=== PATIENT | female | born 1945 | race Caucasian/White ===

== ENCOUNTER 2020-09-21 11:28 | Outpatient (REF) | payer OTHER, SELFPAY ==
--- NOTE | ~2020-09-21 | XR_ITS ---
EXAMINATION: XR KNEE, LEFT CLINICAL INFORMATION: M25.562 - Pain in left knee COMPARISON: None TECHNIQUE: Four views of the left knee. FINDINGS: There are degenerative changes with marginal osteophytes from the medial lateral tibial plateau. There is no significant joint narrowing and no erosive change or visible chondrocalcinosis. Moderate suprapatellar effusion is present. Hoffa's fat pad appears normal. There is mild spurring at the quadriceps insertion patella. No fracture, dislocation, destructive process. XR/XR knee LT 4V IMPRESSION: Degenerative changes with moderate patellar effusion.
== END 2020-09-21 11:29 | disposition home or self-care (01) ==
LOC: HO.HMGCX 11:28
PROVIDERS: PCP Internal Medicine; Visit Provider Hospitalist
DX: M25.562 Pain in left knee (principal)
CPT/HCPCS: 73564

== ENCOUNTER 2023-06-05 08:31 | Outpatient (AMB) | payer OTHER, SELFPAY ==
[2023-06-05 08:45] VITALS: BP 126/78; PULSE 74; O2SAT 96; BMI 29.3
--- NOTE | 2023-06-05 08:45 | AM.OFFWIN_ITS ---
Intake Vital Signs 3 06/05/23 08:45 Height 5 ft 4 in Weight 170 lb 8 oz BMI 29.3 BP 126/78 Blood Pressure Location Lt brachial Position Sitting Pulse 74 Pulse Source Pulse Oximeter Pulse Oximetry (%) 96 Oxygen Delivery Method Room Air Intake Visit Reasons: EP LT foot Patient Tobacco Use Status: Never used Tobacco Allergies No Known Allergies Allergy (Verified 06/05/23 08:48) Medication List - Last Reconciled 06/05/23 by Delano Rodrigues MD apixaban (Eliquis) 5 mg PO BID atenolol 50 mg PO DAILY levothyroxine 175 mcg PO DAILY lisinopril 5 mg PO DAILY oxybutynin chloride ER 5 mg PO DAILY sertraline 100 mg PO DAILY Do you need a note to return to daycare/school/sports/work: No HPI EP LT foot 2 HPI0 Details Patient is a 77-year-old female came in today to be evaluated for pain left foot, patient says that she was gardening the other day and she noticed her foot was hurting around her to and it seemed red and swollen Next day it was feeling better swelling was down Patient did gardening again and noticed the swelling but no redness She said that she has booked appointment with a foot doctor but it is not until August On examination patient have callus a wart on her left toe plantar aspect which is causing pain when she walks There is no swelling at this time She has an appointment with primary care coming up this week, she will discuss vascular evaluation in her left leg, that might be the reason of swelling when she is on her feet all day. There is no signs of infection. On review system there is no fever no chills no headache no nausea no vomiting PFSH Social History Patient Tobacco Use Status: Never used Tobacco Review of Systems Const All systems reviewed & are unremarkable except as noted in HPI and below Physical Exam Vital Signs: Last Vital Signs Pulse 74 06/05/23 08:45 BP 126/78 06/05/23 08:45 Pulse Ox 96 06/05/23 08:45 Oxygen Delivery Method Room Air 06/05/23 08:45 BMI result Body Mass Index 29.3 Const General: no acute distress Orientation/consciousness: patient oriented x3 Eyes General: appearance normal, both eyes and all related structures Resp Effort & Inspection: normal respiratory effort and able to speak in complete sentences Auscultation: clear to auscultation bilaterally Cardio Other: S1 S2 Neuro General: patient oriented x3 Extrem Ankle/foot/toe images: 2 1. Callus and wart, no signs of infection, no swelling, dorsalis pedal pulse 2+, sensory intact, patient is able to move all toes without any discomfort Psych Mental Status: mental status grossly normal Assessment & Plan Assessment & Plan (1) Plantar wart of left foot: Code(s): B07.0 - Plantar wart Plan Patient is a 77-year-old female came in today to be evaluated for pain left foot, patient says that she was gardening the other day and she noticed her foot was hurting around her to and it seemed red and swollen Next day it was feeling better swelling was down Patient did gardening again and noticed the swelling but no redness She said that she has booked appointment with a foot doctor but it is not until August On examination patient have callus a wart on her left toe plantar aspect which is causing pain when she walks There is no swelling at this time She has an appointment with primary care coming up this week, she will discuss vascular evaluation in her left leg, that might be the reason of swelling when she is on her feet all day. There is no signs of infection. I would recommend to gently take off skin around the romano after baths, while she wait to see the traditional chinese herbalist On review system there is no fever no chills no headache no nausea no vomiting Coding Level of Care Code Est Pt Level 3 (11169) Diagnoses Plantar wart of left foot B07.0
== END 2023-06-05 10:05 | disposition home or self-care (01) ==
PROVIDERS: PCP Internal Medicine; Visit Provider Internal Medicine
DX: B07.0 Plantar wart (principal)
CPT/HCPCS: 99213

== ENCOUNTER 2023-07-17 08:08 | Outpatient (AMB) | payer OTHER, SELFPAY ==
[2023-07-17 08:25] VITALS: BP 120/76; PULSE 68; TEMP 36.6; O2SAT 94; BMI 28.6
--- NOTE | 2023-07-17 08:25 | AM.OFFWIN_ITS ---
Intake Vital Signs 07/17/23 08:25 Height 5 ft 4 in Weight 166 lb 8 oz BMI 28.6 BP 120/76 Blood Pressure Location Lt brachial Position Sitting Pulse 68 Pulse Source Pulse Oximeter Temp 97.9 F Temp Source Oral Pulse Oximetry (%) 94 Oxygen Delivery Method Room Air Intake Visit Reasons: EP swollen/pain big toe lft foot Intake Note: Pt is here today for big Lt toe swelling, pt mentioned she has an appt with podiatry August 26 but states its painful and hard to walk. Patient Tobacco Use Status: Never used Tobacco Allergies No Known Allergies Allergy (Verified 06/05/23 08:48) HPI HPI Comments History of Present Illness Details This is a 78-year-old female with a past medical history of atrial fibrillation currently maintained on Eliquis, depression, hypothyroidism and hypertension presenting for evaluation of pain, redness and swelling in her left great toe. Patient was evaluated for discomfort in her left toe at the beginning of June and diagnosed with a plantar wart that she has been using a pumice stone on. Patient states over the past 2 days her left great toe has become significantly more painful, red and swollen. Patient has taken ibuprofen without relief for discomfort. Patient denies any injury or trauma preceding the onset of her symptoms. [facility] Social History Patient Tobacco Use Status: Never used Tobacco Review of Systems Const All systems reviewed & are unremarkable except as noted in HPI and below Denies chills and Denies fever(s) Eyes Reports no additional complaints ENT Reports no additional complaints Card Reports no additional complaints Resp Reports no additional complaints GI Reports no additional complaints Reports no additional complaints Musc Details: pain LGT Reports limited range of motion Skin/Breast Reports change in pigmentation, Reports erythema and Denies sores Neuro Reports no additional complaints Endo Reports no additional complaints Physical Exam Vital Signs: Last Vital Signs Temp 97.9 F 07/17/23 08:25 Pulse 68 07/17/23 08:25 BP 120/76 07/17/23 08:25 Pulse Ox 94 07/17/23 08:25 Oxygen Delivery Method Room Air 07/17/23 08:25 BMI result Body Mass Index 28.6 Const General: cooperative, healthy appearing, comfortable, no acute distress, well developed, alert and Physically active Nutritional Appearance: average body habitus Orientation/consciousness: patient oriented x3 Limitations: no limitations Skin Other: There is macular erythema overlying the proximal phalanx of the LGT both dorsal and plantar surfaces with subjective edema that is warm and tender to touch; plantar wart present plantar lateral surface of the LGT, no fluctuance, no exudates. Erythema does not overlie the 1st MTP. Neuro General: patient oriented x3 Extrem Other: pain to direct examination of the dorsal surface of the LGT; patient favors left foot when ambulating. Assessment & Plan Assessment & Plan (1) Cellulitis of great toe, left: Comment: No clinical evidence of gout and no evidence of retained foreign body. Code(s): L03.032 - Cellulitis of left toe Plan: Doxycycline b.i.d. x7 days. Patient will follow up Podiatry as scheduled on August 26. Medications: New doxycycline hyclate 100 mg PO BID 14 caps 0RF Coding Level of Care Code Est Pt Level 3 (40344) Diagnoses Cellulitis of great toe, left L03.032 Time Spent (min) 20
== END 2023-07-17 09:04 | disposition home or self-care (01) ==
PROVIDERS: PCP Internal Medicine; Visit Provider Physician Assistant
DX: L03.032 Cellulitis of left toe (principal)
CPT/HCPCS: 99213

== ENCOUNTER 2023-11-27 08:03 | Outpatient (AMB) | payer OTHER, SELFPAY ==
[2023-11-27 08:05] VITALS: BP 140/90; PULSE 86; O2SAT 96
--- NOTE | 2023-11-27 08:05 | AM.OFFWIN_ITS ---
Intake Vital Signs 3 11/27/23 08:05 Weight 168 lb BP 140/90 H Blood Pressure Location Lt brachial Position Sitting Pulse 86 Pulse Source Pulse Oximeter Pulse Oximetry (%) 96 Oxygen Delivery Method Room Air Intake Visit Reasons: EP Blisters on lt leg Intake Note: Patient here for blisters on left leg that started last week. Patient Tobacco Use Status: Never used Tobacco Allergies No Known Allergies Allergy (Verified 11/27/23 08:09) Do you need a note to return to daycare/school/sports/work: No HPI HPI Comments 2 History of Present Illness0 Details 78 y/o female patient who presents to [facility] walk in clinic with c/o itchy red skin blisters on her BLEs for 1 week now. She does report taking a new medication Atorvastatin 10 mg that was started 3 weeks ago by PCP. reports the blisters are very itchy and filled with clear fluid. [facility] Social History Patient Tobacco Use Status: Never used Tobacco Review of Systems Const All systems reviewed & are unremarkable except as noted in HPI and below Physical Exam Const General: cooperative and no acute distress Nutritional Appearance: obese Orientation/consciousness: patient oriented x3 Skin Other: Large red raised skin blisters filled with fluid Full body images: 2 1. Large red raised skin blisters filled with fluid 2. Large red raised skin blisters filled with fluid Neuro General: patient oriented x3, gait normal and moves all extremities Extrem Right lower extremity: full ROM and lower leg Details: no edema; no tenderness Left lower extremity: full ROM and lower leg Details: no edema; no tenderness Assessment & Plan Assessment & Plan (1) Bullous rash: Code(s): R21 - Rash and other nonspecific skin eruption Plan: Advised to Stop Atorvastatin for now and F/U with PCP. Suspecting an adverse reaction from medication. Atorvastatin is known to cause Bullous Rash. DDx's: Bullous Pemphigoid rash vs Bullous Dermatosis. Coding Level of Care Code Est Pt Level 3 (33170) Diagnoses Bullous rash R21 Time Spent (min) 15
== END 2023-11-27 08:48 | disposition home or self-care (01) ==
PROVIDERS: PCP Internal Medicine; Visit Provider Nurse Practitioner Family
DX: R21 Rash and other nonspecific skin eruption (principal)

== ENCOUNTER → 2023-11-27 08:03 | Outpatient (BNVA) | payer OTHER, SELFPAY | PROVIDERS: PCP Internal Medicine; Visit Provider Nurse Practitioner Family ==

== ENCOUNTER 2024-06-13 08:02 | Outpatient (AMB) | payer OTHER, SELFPAY ==
--- OUTSIDE RECORDS SUMMARY | 2024-06-13 08:07 | XMS_ITS ---
Author Organization [facility] Address [address] [place] [address] Care Team Providers Care [employer] Magistrate Name Role Phone Staci Galarza MD Primary Care Provider Unav ailable Karoline Rodriguez Unavailable [phone] REASON FOR VISIT BUY Wart Stick Encounters Encounter Location Date Provider Diagnosis [facility] [address] [place] [address] 11/14/2023 Karoline Rodriguez Plan Of Treatment No Information Progress Notes * Helen GALARZA ADOB:[birth year] (78 yo F)Acc No.[id number]:11/14/2023 Patient:?Helen Galarza :1945???Age:78 Y???Sex:Female Address:[address] [place] [address], [address] * true * Date:? Generated for Printi maite/Radhames/eTransmitting on:?06/13/2024 08:07 AM EDT
--- OUTSIDE RECORDS SUMMARY | 2024-06-13 08:07 | XMS_ITS ---
Author Organization [facility] Address [address] [place] [address] Care Team Providers Care Putty Mixer And Applier Name Role Phone Staci Galarza MD Primary Care Provider Unav ailable Karoline Rodriguez Unavailable [phone] Allergies No Known Allergies REASON FOR VISIT Pcp-08/2023, Erost(s) Medications Medication SIG (Take, Route, Frequency, Duration) Notes Start Date End Date Status Sertraline HCl 100 MG 1 tablet Orally On ce a day Active Levothyroxine Sodium 175 MCG 1 tablet in the morning on an empty stomach Orally Once a day Active oxyBUTYnin Chloride 5 MG 1 tablet Orally Once a day Active Lisinopril 10 MG 1 tablet Orally Once a day Active Atenolol 50 MG 1 tablet Orally Once a day Active Multiple Vitamin Act jaye Calcium + D Active Eliquis 5 MG as directed Orally Active Social History Tobacco Use: Social History Observation Description Date Details (start date - stop date) Never Smoker NA - NA Tobacco Use/Smoking Question Answer Notes Are you a: nonsmoker Additional Findings: Tobacco Non-User Current no n-smoker Tobacco use other than smoking: Question Answer Notes Are you an other tobacco user? No Problems Problem Type SNOMED Code ICD Code Onset Dates Problem Status W/U Status Risk Notes Problem Plantar wart ([id number]) Plantar wart (B07.0) Active confirmed Vital Signs Height 5 ft 4 in in 10/24/2023 Weight 165 lbs 10/24/2023 BMI 28.32 kg/m2 10/24/2023 Encounters Encounter Location Date Provider Diagnosis [facility] [address] [place] [address] 10/24/2023 Karoline Rodriguez Left foot pain M79.672 and Plantar wart B07.0 Assessments Encounter Date Diagnosis (ICD Code) Assessment Notes Treatment Notes Treatment Clinical Notes Section Notes 10/24/2023 Left foot pain (ICD-10 - M79.672) 10/24/2023 Plantar wart (ICD-10 - B07.0) Plan Of Treatment Next Appt Details Follow Up: 4 Weeks, Reason: Procedure Notes * Category Sub-Category Detail Notes Wart Treatment Procedure Verrucae were de brided to pin-point bleeding margins with sterile 15 surgical blade, silver nitrate chemocautery applied, recomm. immune-boosting meds such as zinc, recomm. follow up with topical chemosurgical agents , treated with CANTHERONE Plus Salicylic acid. The patient was informed of the possible skin reactions to Canthardin, including, but not limited to, pain, difficulty standing/walking for up to a week or more, redness, swelling, blistering, infection. Recommendations were made for the patient to take Tylenol and/or Anti-inflammatories such as Motrin for pain if their PMH allows, apply ice, or soak in cool water twice daily for 20 minutes for blistering, and call the office if reaction is severe Progress Notes * Helen GALARZA ADOB:[birth year] (78 yo F)Acc No.[id number]:10/24/2023 Progress Notes Patient:?Geovanni Helen Tariq Provider:?Karoline Rodriguez DPM :1945???Age:78 Y???Sex:Female D ate:10/24/2023 Address:[address] [place], [place] [id number] Pcp:Staci Galarza MD Subjective: * Chief Complaints: * ???Pcp-08/2023Wart(s) * HPI: ???Skin problems:?Pt States PCP Visit: ?DATE?09/04/2023 * ROS:?General/Constitutional:?Nausea?denies.?Vomiting?denies.?Hunger Thirst?denies.?Loss appetite?denies.?Chills?denies.?Fatigue?denies.?Fever?denies.?Night Sweats?denies.?Unexplained weight loss?denies.?Unexplained weight gain?denies.?HEENTM:?Dentures?denies.?Dizziness?denies.?Glasses/contacts?admits.?Retinopathy?de nies.?Blurred/double vision?denies.?TMJ?denies.?Discharge/drainage?denies.?Implants?denies.?Sore throat?denies.?Dental implants?denies.?Hard of hearing ?denies.?Difficulty chewing/swallowing/speaking?denies.?Nose bleeds?denies.?Sore mouth?denies.?Respiratory:?On Oxygen?denies.?Pneumonia/pleurisy?denies.?Bronchitis?denies.?Emphysema?denies.?C oughing?denies.?Cough blood?denies.?Shortness of breath?admits.?Wheezing?denies.?Cardiovascular:?Pacemaker?denies.?MVP?denies.?WPW?denies.?CHF?denies.?Heart attack?denies.?Septal defect?denies.?Rapid beat?denies.?Chest pain ?denies.?Atrial Fib.?admits.?Murmur/Palpitations?denies.?Gastrointestinal:?Hemorrhoids?denies.?Stomach/Abdominal pain?denies.?Dark blood stool?denies.?Irritable bowel ?denies.?Constipation?denies.?Diarrhea?denies.?Hematology:?Swelling?denies.?Clots?denies.?Varicose Veins?denies.?Bruising?denies.?Bleeding problem?denies.?Genitourinary:?Blood urine?denies.?Frequent/Painfu/urination/bladder control?denies.?Kidney stones?denies.?Infection (UTI)?denies.?Nephropathy?denies.?sex trans dis (STD)?denies.?Prostate?denies.?Musculoskeletal:?Hammertoes?denies.?Bunions?admits.?Back Pain?admits.?Muscle Cramps/ Resting?denies.?Muscle cramps / walking?denies.?Generalized aches and pains?denies.?Weakness?denies.?Integ.:?Nath?denies.?Scars?denies.?Corns/calluses?admits.?Ingrown nails?denies.?Painful nails?denies.?Open Sores?denies.?Rashes?denies.?Neurologic:?Difficulty sleeping?denies.?Brain disorder?denies.?Numbness?denies.?Balance trouble?denies.?Confusion?denies.?Fainting/blackouts?denies.?Tingling?denies.?Tr emors?denies.? * Medical History:? * Surgical History:?bilateral mastectomy 2020 * Hospitalization/Major Diagno stic Procedure:?Denies Past Hospitalization * Family History:?Mother: dece ased, foot problems, diagnosed with Unspecified essential hypertension, Other malignant neoplasm of unspecified site.?Father: .? * Social History:?Tobacco Use:?Tobacco Use/Smoking?Are you a:?nonsmoker ?Additional Findings: Tobacco Non-User?Current non-smoker ?Tobacco use other than smoking?Are you an other tobacco user??No ???Miscellaneous:?Caffeine: yes, frequency:, 1-2 cups per day. ?Children: yes, 1. ?Exercise: yes, walking. ?Marital status: . ?Occupation: Retired. * Medications:?TakingEliquis 5 MG Tablet as directed Orally Calcium + D Multiple Vitamin Lisinopril 10 MG Tablet 1 tablet Orally Once a dayoxyBUTYnin Chloride 5 MG Tablet 1 tablet Orally Once a dayLevothyroxine Sodium 175 MCG Tablet 1 tablet in the morning on an empty stomach Orally Once a daySertraline HCl 100 MG Tablet 1 tablet Orally Once a dayAtenolol 50 MG Tablet 1 tablet Orally Once a dayMedication List reviewed and reconciled with the patientTaking Eliquis 5 MG Tablet as directed Orally Taking Calcium + D Taking Multiple Vitamin Taking Lisinopril 10 MG Tablet 1 tablet Orally Once a dayTaking oxyBUTYnin Chloride 5 MG Tablet 1 tablet Orally Once a dayTaking Levothyroxine Sodium 175 MCG Tablet 1 tablet in the morning on an empty stomach Orally Once a dayTaking Sertraline HCl 100 MG Tablet 1 tablet Orally Once a dayTaking Atenolol 50 MG Tablet 1 tablet Orally Once a dayMedication List reviewed and reconciled with the patient * Allergies:?N.K.D.A.yes[Aller gies Verified] Objective: * Vitals:?Ht: 5 ft 4 in, Wt: 1 65, BMI: 28.32, Shoe size: 8.5, Ht-cm: 162.56 cm, Wt-k.84 kg. * Examination: ???Dermatologic: ?VERRUCA:?Reveals a Single , multi-loculated , mosaic-patterned, round, raised, flat-topped, petechial bleeding papule(s), with cauliflower appearance and interruption of skin lines, pain to lateral compression, and size estimated at 5 mm diameter , LEFT , 1st toe.? Assessment: * Assessment: 1.?Left foot pain - M79.672? 2.?Plantar wart - B07.0 (Primary)? Plan: * Treatment: * Procedures:?Wart Treatment:?Procedure?Verrucae were debrided to pin-point bleeding margins with sterile 15 surgical blade, silver nitrate chemocautery applied, recomm. immune-boosting meds such as zinc, recomm. follow up with topical chemosurgical agents , treated with CANTHERONE Plus Salicylic acid. The patient was informed of the possible skin reactions to Canthardin, including, but not limited to, pain, difficulty standing/walking for up to a week or more, redness, swelling, blistering, infection. Recommendations were made for the patient to take Tylenol and/or Anti- inflammatories such as Motrin for pain if their PMH allows, apply ice, or soak in cool water twice daily for 20 minutes for blistering, and call the office if reaction is severe.? * Procedure Codes:?21449 Wart Destruction, 1-14, Modifiers: XS * Follow Up:?4 Weeks * Images: * Sign off status: Completed true * Provider:?Karoline Rodriguez DPM Date:?12/2023 Generated for Ariana arora/Radhames/Kym on:?06/13/2024 08:07 AM EDT History and Physical Notes * HPI (History of Present Illness) Category Sub-Category Detail Notes Category Not es Skin problems Pt States PCP Visit: DATE: 09/04/2023 Examination Category Sub-Category Detail Notes Category Not es Dermatologic VERRUCA: Reveals a Single , multi-loculated , mosaic-patterned, round, raised, flat-topped, petechial bleeding papule(s), with cauliflower appearance and interruption of skin lines, pain to lateral compression, and size estimated at 5 mm diameter , LEFT , 1st toe
--- OUTSIDE RECORDS SUMMARY | 2024-06-13 08:07 | XMS_ITS ---
Author Organization [facility] Address [address] [place] [address] Care Team Providers Care Care Management Specialist Name Role Phone Staci Galarza MD Primary Care Provider Unav ailable Karoline Rodriguez Unavailable [phone] Allergies No Known Allergies REASON FOR VISIT Pcp-08/2023, Wilfrido(s) Medications Medication SIG (Take, Route, Frequency, Duration) Notes Start Date End Date Status Sertraline HCl 100 MG 1 tablet Orally On ce a day Active Levothyroxine Sodium 175 MCG 1 tablet in the morning on an empty stomach Orally Once a day Active Multiple Vitamin Act jaye oxyBUTYnin Chloride 5 MG 1 tablet Orally Once a day Active Lisinopril 10 MG 1 tablet Orally Once a day Active Atenolol 50 MG 1 tablet Orally Once a day Active Calcium + D Active Eliquis 5 MG as directed Orally Active Social History Tobacco Use: Social History Observation Description Date Details (start date - stop date) Never Smoker NA - NA Tobacco Use/Smoking Question Answer Notes Are you a: nonsmoker Additional Findings: Tobacco Non-User Current no n-smoker Alcohol Screen Question Answer Notes Did you have a drink containing alcohol in the p ast year? Yes Points 0 Interpretation Negative Tobacco use other than smoking: Question Answer Notes Are you an other tobacco user? No Vital Signs Height 5 ft 4 in in 11/14/2023 Weight 165 lbs 11/14/2023 BMI 28.32 kg/m2 11/14/2023 Encounters Encounter Location Date Provider Diagnosis [facility] [address] [place] [address] 11/14/2023 Karoline Rodriguez Left foot pain M79.672 and Plantar wart B07.0 Assessments Encounter Date Diagnosis (ICD Code) Assessment Notes Treatment Notes Treatment Clinical Notes Section Notes 11/14/2023 Left foot pain (ICD-10 - M79.672) 11/14/2023 Plantar wart (ICD-10 - B07.0) Plan Of Treatment Next Appt Details Follow Up: prn, Reason: Procedure Notes * Category Sub-Category Detail Notes Wart Treatment Procedure until the lesion is completely resolved, Verrucae were debrided to pin-point bleeding margins with sterile 15 surgical blade, silver nitrate chemocautery applied, recomm. immune-boosting meds such as zinc, recomm. follow up with topical chemosurgical agents , until the lesion is completely resolved Progress Notes * Helen GALARZA ADOB:[birth year] (78 yo F)Acc No.[id number]:11/14/2023 Progress Notes Patient:?Helen Galarza Provider:?Karoline Rodriguez DPM :1945???Age:78 Y???Sex:Female D ate:11/14/2023 Address:[address] [place], [place] [id number] Pcp:Staci Galarza MD Subjective: * Chief Complaints: * ???Pcp-08/2023Wart(s) * HPI: ???Skin problems:?Pt States PCP Visit: ?DATE?09/04/2023 * ROS:?General/Constitutional:?Nausea?denies, denies.?Vomiting?denies, denies.?Hunger Thirst?denies, denies.?Loss appetite?denies, denies.?Chills?denies, denies.?Fatigue?denies, denies.?Fever?denies, denies.?Night Sweats denies, denies.?Unexplained weight loss?denies, denies.?Unexplained weight gain?denies, denies.?HEENTM:?Dentures?denies, denies.?Dizziness?denies, denies.?Glasses/contacts?admits, admits.?Retinopathy?denies, denies.?Blurred/double vision?denies, denies.?TMJ?denies, denies.?Discharge/drainage?denies, denies.?Implants?denies, denies.?Sore throat?denies, denies.?Dental implants?denies, denies.?Hard of hearing ?denies, denies.?Difficulty chewing/swallowing/speaking?denies, denies.?Nose bleeds?denies, denies.?Sore mouth?denies, denies.?Respiratory:?On Oxygen?denies, denies.?Pneumonia/pleurisy?denies, denies.?Bronchitis?denies, denies.?Emphysema?denies, denies.?Coughing?denies, denies.?Cough blood?denies, denies.?Shortness of breath?admits, admits.?Wheezing?denies, denies.?Cardiovascular:?Pacemaker?denies, denies.?MVP?denies, denies.?WPW?denies, denies.?CHF?denies, denies.?Heart attack?denies, denies.?Septal defect?denies, denies.?Rapid beat?denies, denies.?Chest pain ?denies, denies.?Atrial Fib.?admits, admits.?Murmur/Palpitations?denies, denies.?Gastrointestinal:?Hemorrhoids?denies, denies.?Stomach/Abdominal pain?denies, denies.?Dark blood stool?denies, denies.?Irritable bowel ?denies, denies.?Constipation?denies, denies.?Diarrhea?denies, denies.?Hematology:?Swelling?denies, denies.?Clots?denies, denies.?Varicose Veins?denies, denies.?Bruising?denies, denies.?Bleeding problem?denies, denies.?Genitourinary:?Blood urine?denies, denies.?Frequent/Painfu/urination/bladder control?denies, denies.?Kidney stones?denies, denies.?Infection (UTI)?denies, denies.?Nephropathy?denies, denies.?sex trans dis (STD)?denies, denies.?Prostate?denies, denies.?Musculoskeletal:?Hammertoes?denies, denies.?Bunions?admits, admits.?Back Pain?admits, admits.?Muscle Cramps/ Resting?denies, denies.?Muscle cramps / walking?denies, denies.?Generalized aches and pains?denies, denies.?Weakness?denies, denies.?Integ.:?Nath?denies, denies.?Scars?denies, denies.?Corns/calluses?admits, admits.?Ingrown nails?denies, denies.?Painful nails?denies, denies.?Open Sores?denies, denies.?Rashes?denies, denies.?Neurologic:?Difficulty sleeping?denies, denies.?Brain disorder?denies, denies.?Numbness?denies, denies.?Balance trouble?denies, denies.?Confusion?denies, denies.?Fainting/blackouts?denies, denies.?Tingling?denies, denies.?Tremors?denies, denies.? * Medical History:? * Surgical History:?bilateral mastectomy 2019 * Hospitalization/Major Diagno stic Procedure:?Denies Past Hospitalization * Family History:?Mother: dece ased, foot problems, diagnosed with Unspecified essential hypertension, Other malignant neoplasm of unspecified site.?Father: .? * Social History:?Tobacco Use:?Tobacco Use/Smoking?Are you a:?nonsmoker ?Additional Findings: Tobacco Non-User?Current non-smoker ?Tobacco use other than smoking?Are you an other tobacco user??No ???Drugs/Alcohol:?Drugs?Have you used drugs other than those for medical reasons in the past 12 months??No ?Alcohol Screen?Did you have a drink containing alcohol in the past year??Yes ?Points?0 ?Interpretation?Negative ???Miscellaneous:?Caffeine: yes, frequency:, 1-2 cups per day. [...] Objective: * Vitals:?Ht: 5 ft 4 in, Wt:16 5, BMI: 28.32, Shoe size:8.5, Ht-cm: 162.56 cm, Wt- k.84 kg. * Examination: ???Dermatologic: ?VERRUCA:?Reveals a Single , multi-loculated , mosaic-patterned, round, raised, flat-topped, petechial bleeding papule(s), with cauliflower appearance and interruption of skin lines, pain to lateral compression, and size estimated at 5 mm diameter , LEFT , 1st toe.? Assessment: * Assessment: 1.?Left foot pain - M79.672? 2.?Plantar wart - B07.0 (Primary)? Plan: * Treatment: * Procedures:?Wart Treatment:?Procedure?until the lesion is completely resolved, Verrucae were debrided to pin-point bleeding margins with sterile 15 surgical blade, silver nitrate chemocautery applied, recomm. immune-boosting meds such as zinc, recomm. follow up with topical chemosurgical agents , until the lesion is completely resolved.? * Procedure Codes:?40425 Wart Destruction, 1-14, Modifiers: XS * Follow Up:?prn * Images: * Sign off status: Completed true * Provider:?Karoline Rodriguez DPM Date:?03/2023 Generated for Ariana arora/Radhames/Kym on:?06/13/2024 08:07 AM [...]
[2024-06-13 08:08] VITALS: BP 126/80; PULSE 86; O2SAT 98
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
--- OUTSIDE RECORDS SUMMARY | 2024-06-13 08:08 | XMS_ITS | Encounter Summary ---
Author Organization [facility] Address [address] [place] [address] Care Team Providers Care Family Program Specialist Name Role Phone Staci Galarza MD Primary Care Provider [phone] Reason for Visit * Reason Comments 24 Hour Holter Monitor * Cardiac Stress Testing (Routine) - Authorized Specialty Diagnoses / Procedures Referred By Contac t Referred To Contact Cardiology Diagnoses Permanent atrial fibrillation (CMS/HCC V24, CMS/HCC V28) Procedures Cardiac holter monitor (<= 48 hours) OH ECG EXTERNAL UP TO 48 HOURS RECORDING OH ECG EXTERNAL < 48 HOURS CONTINUOUS RECORDING/STORAGE R&I BY A PHYS/QHP OH EXTERNAL ECG UP TO 48 HRS INCL RECORDING SCANNING ANLYS W REPORT Eddie Minor MD [address] [place] [address] Phone: tel: fax: [facility] Referral ID Status Reason Start Date Expiration Date V isits Requested Visits Authorized [id number] Authorized 06/05/2024 06/05/2025 1 1 Encounter Details Date Type Department Care Team (Latest Contact Info) Description 2024 9:30 AM EDT Ancillary Procedure [facility] - [address] [place] [phone] Permanent atrial fibrillation (CMS/HCC V24, CMS/HCC V28) Social History Tobacco Use Types Packs/Day Years Used Date Smoking Tobacco: Never Smokeless Tobacco: Never Alcohol Use Standard Drinks/Week Comments Yes 0 (1 standard drink = 0.6 oz pur e alcohol) Comments Unknown Sex and Gender Information Value Date Recorded Sex Assigned at Not on file Legal Sex Female 2:38 AM EST Gender Identity Not on file Sexual Orientation Not on file documented as of this encounter Plan of Treatment Upcoming Encounters Date Type Department Care Team (Late st Contact Info) Description 09/01/2024 1:00 PM EDT Ancillary Procedure [facility] - [address] [place] [address] 11/18/2024 11:15 AM EDT Office Visit Adult Medicine [facility] [address] [place] [address] Staci Galarza MD [address] [place] [address] 05/12/2025 9:30 AM EDT Office Visit General Surgery [facility] [address] [facility] [address] [place] [address] Marybeth Rice MD [address] [facility] [address] [place] [address] Pending Results Name Type Priority Associated Diagnoses Date /Time Cardiac holter monitor (<= 48 hours) Cardiac Services Routine Permanent atrial fibrillation (CMS/HCC V24, CMS/HCC V28) 2024 9:22 AM EDT documented as of this encounter Visit Diagnoses Diagnosis Permanent atrial fibrillation (CMS/HCC V24, CMS/HCC V28) Atrial fibrillation documented in this encounter Additional Health Concerns Assessment Noted Time PHQ-9 Depression Total Score: 0 05/20/19 25 10:38 AM EDT A fall risk assessment has been complete d for the patient 05/17/2024 12:08 PM EDT documented as of this encounter Care Teams Family Program Specialist Relationship Specialty Start Date End Date Staci Galarza MD [address] [place] [id number] PCP - General 12/31/03 documented as of this encounter
--- OUTSIDE RECORDS SUMMARY | 2024-06-13 08:08 | XMS_ITS | Patient Health Record ---
Author Organization [facility] Address [address] [facility] [place] [address] Care Team Providers Care Rubber Heel And Sole Press Tender Name Role Phone Michell DUMONT, Polico Maikel Primary Care Provider Unav ailable Karoline Rodriguez Unavailable [phone] Christopher Smith Unavailable [phone] Allergies No Known Allergies Reason For Referral No Information Medications Medication SIG (Take, Route, Frequency, Duration) Notes Start Date End Date Status Sertraline HCl 100 MG 1 tablet Orally On ce a day Active Levothyroxine Sodium 175 MCG 1 tablet in the morning on an empty stomach Orally Once a day Active Atenolol 50 MG 1 tablet Orally Once a day Active Multiple Vitamin Act jaye Calcium + D Active oxyBUTYnin Chloride 5 MG 1 tablet Orally Once a day Active Lisinopril 10 MG 1 tablet Orally Once a day Active Eliquis 5 MG as directed Orally [...] W/U Status Risk Notes Problem Plantar wart (92664496) Plantar wart (B07.0) Active confirmed Problem [id number] Hallux valgus (acquired), right foot (M20.11) Active confirmed Problem [id number] Hallux valgus of left foot (M20.12) Active confirmed Problem 271838585 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) Active confirmed Vital Signs Height 5 ft 4 in in 11/14/2023 Weight 165 lbs 11/14/2023 BMI 28.32 kg/m2 11/14/2023 Encounters Encounter Location Date Provider Diagnosis [address] [address] 09/13/2023 Karoline Rodriguez Disorder of the skin and subcutaneous tissue, unspecified L98.9 ; Accessory bone of foot Q74.2 ; Left foot pain M79.672 ; Hallux valgus of left foot M20.12 and Hallux valgus (acquired), right foot M20.[address] [address] 10/24/2023 Karoline Perica Left foot pain M79.672 and Plantar wart B07.[address] [address] 11/14/2023 Karoline Perica Left foot pain M79.672 and Plantar wart B07.[address] [address] 09/13/2023 Karoline Rodriguez [address] [address] 11/14/2023 Karoline Rodriguez Assessments Encounter Date Diagnosis (ICD Code) Assessment Notes Treatment Notes Treatment Clinical Notes Section Notes 09/13/2023 Disorder of the skin and subcutaneous tissue, unspecified (ICD-10 - L98.9) 09/13/2023 Accessory bone of foot (ICD-10 - Q74.2) 10/24/2023 Left foot pain (ICD-10 - M79.672) 11/14/2023 Left foot pain (ICD-10 - M79.672) 11/14/2023 Plantar wart (ICD-10 - B07.0) 10/24/2023 Plantar wart (ICD-10 - B07.0) 09/13/2023 Left foot pain (ICD-10 - M79.672) 09/13/2023 Hallux valgus of left foot (ICD-10 - M20.12) 09/13/2023 Hallux valgus (acquired), right foot (ICD-10 - M20.11) Plan Of Treatment Pending Test Test Name Order Date X ray : Foot, left 3V 09/13/2023 Insurance Providers Payer Name Payer Address Payer Phone Subscriber Number Group Number Insured Name Patient Relationship to Insured Coverage Start Date Coverage End Date [facility] ([facility] [address] [place] [address] [id number] [facility] Helen Galarza Self - patient is the insured Medical (General) History Medical History History ICD Code Back,Hip,and Knee pain Cancer Depression High blood pressure Sciatica thyroid Measles Mumps Chicken pox Surgical History Surgery Date(Month/Year) bilateral mastectomy 2019
--- OUTSIDE RECORDS SUMMARY | 2024-06-13 08:08 | XMS_ITS | Clinical Summary ---
Author Organization [address] Address [address] [place] [phone] Phone Care Team Providers Care Steam Plant Operator Name Role Phone Maria Victoria Galarza MD Primary Care Provider [phone] Allergies Active Allergy Reactions Criticality Noted Date Comments Atorvastatin Rash 05/28/2024 Blisters on legs Medications oxyBUTYnin XL (DITROPAN-XL) 5 mg 24 hr tablet TAKE 1 TABLET BY MOUTH EVERY DAY 90 tablet 1 01/21/20 24 Active calcium carbonate/mauricio min D3 (CALTRATE 600 PLUS D ORAL) OTC Active multivitamin (MULTIPLE VITAMINS ORAL) OTC Activ e levothyroxine (SYNTHROID, LEVOTHROID) 175 mcg tablet TAKE 1 TABLET BY MOUTH EVERY DAY 90 tablet 1 05/08/19 25 Active sertraline (ZOLOFT) 100 mg tablet TAKE 1.5 TABLETS BY MOUTH DAILY. PATIENT IS TO TAKE 150 MG DAILY 135 tablet 1 05/08/19 25 Active lisinopriL (PRINIVIL,ZEST RIL) 10 mg tablet Take 1 tablet (10 mg total) by mouth 1 (one) time each day. 90 each 05/20/19 25 Active Eliquis 5 mg tablet Take 1 tablet (5 mg total) by mouth 2 (two) times a day. 90 each 05/20/19 25 Active furosemide (LASIX) 20 mg tablet Take 1 tablet (20 mg total) by mouth 1 (one) time each day. 30 each 06/06/19 25 026 Active atenoloL (TENORMIN) 50 mg tablet Take 1.5 tablets (75 mg total) by mouth 1 (one) time each day. 135 each 3 06/06/19 Active lisinopriL (PRINIVIL,ZEST RIL) 10 mg tablet Take 1 tablet (10 mg total) by mouth 1 (one) time each day. 025 Discontinued(Re order) atenoloL (TENORMIN) 50 mg tablet Take 1 tablet (50 mg total) by mouth 1 (one) time each day. 11/06/19 025 Discontinued(Re order) Eliquis 5 mg tablet Take 1 tablet (5 mg total) by mouth 2 (two) times a day. 11/06/19 025 Discontinued(Re order) atorvastatin (LIPITOR) 10 mg tablet Take 1 Tablet by mouth daily for 360 days. 11/06/19 025 Discontinued cyclobenzaprin e (FLEXERIL) 5 mg tablet 11/06/19 025 Discontinued(Th erapy completed) atenoloL (TENORMIN) 50 mg tablet Take 1 tablet (50 mg total) by mouth 1 (one) time each day. 90 each 05/20/19 25 025 Discontinued(Re order) Active Problems Problem Noted Date Diagnosed Date CHF (congestive heart failure) ([facility] V24, [facility] V28) 06/05/2024 Assessment & Plan (06/05/2024 5:07 PM EDT): She has developed heart failure symptoms with lower extremity edema and shortness of breath. I will start low-dose furosemide. Will update echocardiogram. Orders: B-type natriuretic peptide; Future Transthoracic echocardiogram (TTE) complete with PRN contrast, bubble, strain, and 3D order panel; Future Primary osteoarthritis of right hip 05/28/2024 Primary osteoarthritis of left hip 05/28/2024 Scoliosis of thoracolumbar spine 05/28/2024 Urinary incontinence 01/23/2024 Microhematuria 06/06/2021 Overview (01/23/2024): Sees urology group of [facility] Permanent atrial fibrillation ([facility] V24, [facility] V28) 03/26/2019 Overview (01/23/2024): Last Assessment & Plan: Onset unclear. Asymptomatic. Heart rate not fast. Continue anticoagulation and atenolol at current dose. Assessment & Plan (06/05/2024 5:07 PM EDT): Her A-fib has been at least 6 years and has been chronic. Her heart rate is usually controlled with more irregularity. Today's EKG shows slightly higher heart rate with more regular. But there is still irregularity. This could be atypical atrial flutter. I will arrange Holter monitor and meantime increase atenolol to 75 mg daily. Orders: ECG 12 lead Cardiac holter monitor (<= 48 hours); Future Ductal carcinoma in situ (DCIS) of left breast 0 03/24/2019 Overview (01/23/2024): See ultrasound 03/20/2019 Hyperglycemia 05/20/2013 Depression 10/14/2009 Renal cyst 02/23/2009 Overview (01/23/2024): Follows with Dr. 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 Will increase lisinopril to 10 mg daily. Will target systolic blood pressure 130 mmHg. Hypothyroidism 06/30/2005 Overview (01/23/2024): s/p thyroidectomy, from goiter Malignant neoplasm of female breast (CMS/HCC V24, CMS/HCC V28) 06/30/2005 Overview (01/23/2024): s/p masectomy, chemo, radiatiomn [id number], oncology recommended discontinuation of aramidex 06/2014 IMO update Encounters Date Type Department Care Team Description 2024 9:30 AM EDT Ancillary Procedure [facility] [address] [place] [phone] Permanent atrial fibrillation (CMS/HCC V24, CMS/HCC V28) 06/05/2024 1:00 PM EDT Office Visit [facility] [address] [facility] [address] [place] [phone] Jah Minor MD Permanent atrial fibrillation (CMS/HCC V24, CMS/HCC V28) (Primary Dx); Congestive heart failure, unspecified HF chronicity, unspecified heart failure type (CMS/HCC V24, CMS/HCC V28) 05/28/2024 11:00 AM EDT Consult Orthopedic Surgery [facility] [address] [facility] [address] [place] [phone] Manny Fernandes MD Primary osteoarthritis of right hip (Primary Dx); Pain of right hip; Primary osteoarthritis of left hip; Scoliosis of thoracolumbar spine, unspecified scoliosis type 05/19/2024 10:30 AM EDT Office Visit Adult Medicine [address] [phone] Ailyn Pierre NP Routine general medical examination at a health care facility (Primary Dx); Tiredness; Need for vaccination with 20-polyvalent pneumococcal conjugate vaccine 05/13/2024 9:30 AM EDT Office Visit General Surgery [facility] [address] [facility] [address] [place] [phone] Marybeth Rice MD History of invasive breast cancer (Primary Dx); Pain of right hip; History of bilateral mastectomy from Last 3 Months Immunizations Name Administration Dates Next Due H1N1 Inj Preservative Free 02/23/2009 Influenza trivalent, 0.5mL ( Fluad) 65yo and older 11/06/2023,01/28/2022,10/30/2019,11/06,12/08/2017,10/23/2016,01/19/2015 ,11/19/2013,11/13/2012,01/09/2012,12/13,10/21/2008,11/14/2006, 6,11/24/2004 Influenza, Unspecified 12/08/2017 Moderna (age 6mo & older) Bi valent, COVID-19, 0.5 mL or 0.25 mL dosage 01/20/2022 Pfizer (ages 12 & older) Biv alent, COVID-19 01/20/2022 Pneumococcal conjugate 20 va lent (Prevnar 20, PCV 20) 2mo and older 05/19/2024 Pneumococcal polysaccharide 23 valent (Pneumovax 23) 2yo and older 05/20/2013 Td Tetanus diptheria (Tdvax) 7yo and older 09/17/2002 Td, Unspecified 09/17/2002 Tdap Tetanus diptheria acell ular pertussis (Boostrix; Adacel) 7yo and older 09/06/2011 Surgical History Surgery Date Site/Laterality Comments COLONOSCOPY 08/27/2002 PROCEDURE: ID COLONOSCOPY FLX DX W/COLLJ SPEC WHEN PFRMD; COMMENT: Negative COLONOSCOPY 04/16/2012 PROCEDURE: ID COLONOSCOPY FLX DX W/COLLJ SPEC WHEN PFRMD; COMMENT: no polyps Medical History Medical History Date Comments Malignant neoplasm of breast (female), unspecified site 06/30/2005 DX:Malignant neoplasm of xavier ast (female), unspecified site; COMMENT: s/p masectomy, chemo, radiatiomn [id number] Essential hypertension, benign 06/30/2005 D X:Essential hypertension, benign Unspecified hypothyroidism 06/30/2005 DX:Un specified hypothyroidism; COMMENT: s/p thyroidectomy, from goiter Depressive disorder, not els ewhere classified 06/30/2005 DX:Depressive disorder, not elsewhere classified Unspecified urinary incontinence 06/30/2005 DX:Unspecified urinary incontinence Family history of malignant neoplasm of gastrointestinal tract 07/10/2007 DX:Family history of maligna nt neoplasm of gastrointestinal tract; COMMENT: Negative colonoscopy 08/27/2002, no colon cancer screening needed for 10 years. Historical Medical DX 02/23/2009 DX:Kidney cyst Depression 10/14/2009 DX:Depression Hyperglycemia 05/20/2013 DX:Hyperglycemia Malignant neoplasm of breast (female), unspecified site 06/30/2005 DX:Malignant neoplasm of xavier ast (female), unspecified site; COMMENT: s/p masectomy, chemo, radiatiomn [phone], oncology recommended discontinuation of aramidex 06/2014 Family History Medical History Relation Name Comments Stomach cancer Maternal Grandfather Colon cancer Mother Relation Name Status Comments Maternal Grandfather Mother Social History Tobacco Use Types Packs/Day Years Used Date Smoking Tobacco: Never Smokeless Tobacco: Never Alcohol Use Standard Drinks/Week Comments Yes 0 (1 standard drink = 0.6 oz pur e alcohol) Comments Unknown Sex and Gender Information Value Date Recorded Sex Assigned at Not on file Legal Sex Female 2:38 AM EST Gender Identity Not on file Sexual Orientation Not on file Obstetrics History Last Filed Vital Signs Vital Sign Reading Time Taken Comments Blood Pressure 140/80 06/05/2024 1:06 PM EDT Pulse 95 06/05/2024 1:06 PM EDT Temperature 36.4 ??C (97.6 ??F) 05/19/2024 10:33 AM E DT Respiratory Rate 16 05/19/2024 10:33 AM EDT Oxygen Saturation 96% 06/05/2024 1:06 PM EDT Inhaled Oxygen Concentration - - Weight 80.7 kg (178 lb) 06/05/2024 1:06 PM EDT Height 165.1 cm (5' 5 ) 06/05/2024 1:06 PM EDT Body Mass Index 29.62 06/05/2024 1:06 PM EDT Plan of Treatment Upcoming Encounters Date Type Department Care Team (Late st Contact Info) Description 09/01/2024 1:00 PM EDT Ancillary Procedure [facility] [address] [facility] [address] [place] [phone] 11/18/2024 11:15 AM EDT Office Visit Adult Medicine [facility] [place] [address] [place] [phone] Maria Victoria Galarza MD [address] [place] [address] 05/12/2025 9:30 AM EDT Office Visit General Surgery [facility] [address] [facility] [address] [place] [phone] Marybeth Rice MD 175 [facility] [address] [place] [address] Health Maintenance Due Date Last Done Comments Zoster Vaccines (1 of 2) 06/10/1966 DTaP,Tdap,and Td Vaccines (4 - Td or Tdap) 09/05/2021 09/06/2011, 09/17/2002, 09/17/2002 Social Influencers of Health Screening 01/19/2022 RSV Immunization Adult Patients (1 - 1-dose 75+ series) 06/10/2022 COVID-19 Vaccine ( - season) 2023 01/20/2022, 01/20/2022, 12/28/2020, Additional history exists Hypertension/CHF/CAD Annual BMP Blood Test 11/04/2024 11/05/2023, 11/05/2023 Depression Screening 05/19/2025 05/19/2024 Falls Risk Assessment 05/19/2025 05/19/2024 Cholesterol Screening (Lipid Panel) 11/04/2028 11/05/2023, 11/05/2023 Osteoporosis Screening (Bone Density Screening) 08/23/2032 08/23/2022, 01/01/2019 Hepatitis C Screening Completed 08/24/2014 Breast Cancer Screening Discontinued 03/19/2019 Influenza Vaccine Completed 11/06/2023, , 10/30/2019, Additional history exists Pneumococcal Vaccine: 50+ Years Completed 05/19/2024, 05/20/2013 HIB Vaccines Aged Out No longer eligi ble based on patient's age to complete this topic HPV Vaccines Aged Out No longer eligi ble based on patient's age to complete this topic Hepatitis A Vaccines Aged Out No long er eligible based on patient's age to complete this topic Hepatitis B Vaccines Aged Out No long er eligible based on patient's age to complete this topic IPV Vaccines Aged Out No longer eligi ble based on patient's age to complete this topic MMR Vaccines Aged Out No longer eligi ble based on patient's age to complete this topic Meningococcal ACWY Vaccine Aged Out N o longer eligible based on patient's age to complete this topic Meningococcal B Vaccine Aged Out No l onger eligible based on patient's age to complete this topic RSV Immunization Patients Under 20 months Aged Out No longer eligible based on patient's age to complete this topic Varicella Vaccines Aged Out No longer eligible based on patient's age to complete this topic Procedures Procedure Name Priority Date/Time Associated Diagnosis Comments ECG 12-LEAD Routine 06/05/2024 1:15 PM EDT Permanent atrial fibrillation (CMS/HCC V24, CMS/HCC V28) ANNUAL BMP BLOOD TEST Routine 11/05/2023 LIPID PANEL Routine 11/05/2023 DXA BONE DENSITY STUDY 1+ SITS AXIAL SKEL Routine 08/23/2022 11:29 AM EDT Other specified personal risk factors, not elsewhere classified [facility] SCREENING DIGITAL Routine 03/19/2019 9:24 AM EST Encounter for screening mammogram for malignant neoplasm of breast HEPATITIS C SCREENING Routine 08/24/2014 from Last 3 Months or Most Recently Relevant to Health Maintenance Results * ECG 12 lead (06/05/2024 1:15 PM EDT) Ventricular Rate ECG 95 BPM GEMUSE Atrial Rate 101 BPM GEMUSE QRS Duration 84 ms GEMUSE Q-T Interval 358 ms GEMUSE QTc 449 ms GEMUSE R Mascot 48 degrees GEMUSE T [place] 77 degrees GEMUSE ECG Interpretation Atrial fibrillation Cannot exclude Septal infarct (cited on or before 26-MAR-2019) Abnormal ECG When compared with ECG of 26-MAR-2019 13:03, No significant change was found Confirmed by Mariangel MINOR, JAH ([id number]) on 06/05/2024 4:06:56 PM GEMUSE 06/05/2024 1:15 PM EDT 06/05/2024 4:06 PM EDT Jah Minor MD ECG ORDERABLES Final Result GEMUSE * Annual BMP Blood Test (11/05/2023) Pathologist [facility] Annual BMP Blood Test ABSTRACTED Historical Provider HEALTH MAINTENANCE Final Result * (ABNORMAL) Lipid panel (11/05/2023) LDL/HDL Ratio 3 0 - 4 Triglycerides 148 0 - 150 mg/dL Cholesterol 219(A) 0 - 200 mg/dL HDL 79 >=40 mg/dL LDL Cholesterol 111(A) 0 - 100 mg/dL Blood Venous blood specimen / Unknown Historical Provider MD LAB BLOOD ORDERABLES Veronica l Result * DXA BONE DENSITY STUDY 1+ SITS AXIAL SKEL (08/23/2022 11:29 AM EDT) Anatomical Region Laterality Modality Bone Densitometr y 01/23/2022 8:36 AM EST Narrative 08/23/2022 2:52 PM EDT BONE DENSITY ? Lumbar Spine T-score is +1.0 ?? (SD relative to 20-29 y/o adult) Z-score is +3.4 ??(SD relative to age matched peers) This is normal by criteria defined by the WHO. Left Hip T-score is -0.5 Z-score is +1.6 This is normal by criteria defined by the WHO. Impression: Based on the World Health Organization criteria, Helen Galarza should be classified as having normal bone density. [facility] Department of Internal Medicine recommends using National Osteoporosis Foundation (NOF) guidelines in treatment decisions related to osteoporosis. NOF guidelines suggest considering treatment for postmenopausal women and men aged 50 or older presenting with the following: History of hip or vertebral fracture. T-score less than or equal to -2.5 (DXA) at the femoral neck, total hip, or spine, after appropriate evaluation to exclude secondary causes. Low bone mass (T-score between -1.0 and -2.5 at the femoral neck or spine) AND a 10-year probability of a hip fracture greater than or equal to 3% OR a 10-year probability of a major osteoporosis-related fracture greater than or equal to 20% based on the [place]-adapted WHO algorithm Please note that all treatment decisions require clinical judgment and consideration of individual patient factors, including patient preferences, co-morbidities, previous drug use, risk factors not captured in the FRAX model (e.g., frailty, falls, vitamin D deficiency, increased bone turnover, interval significant decline in bone density) and possible under- or over-estimation of fracture risk by FRAX. Procedure Note Andi Saini MD - 03/20/2023 BONE DENSITY Lumbar Spine T-score is +1.0 (SD relative to 20-29 y/o adult) Z-score is +3.4 (SD relative to age matched peers) This is normal by criteria defined by the WHO. Left Hip T-score is -0.5 Z-score is +1.6 This is normal by criteria defined by the WHO. Impression: Based on the World Health Organization criteria, Helen Galarza shouldbe classified as having normal bone density. [facility] Department of Internal Medicine recommendsusing National Osteoporosis Foundation (NOF) guidelines in treatmentdecisions related to osteoporosis. NOF guidelines suggest consideringtreatment for postmenopausal women and men aged 50 or older presentingwith the following: History of hip or vertebral fracture. T-score less than or equal to -2.5 (DXA) at the femoral neck, total hip,or spine, after appropriate evaluation to exclude secondary causes. Low bone mass (T-score between -1.0 and -2.5 at the femoral neck or spine)AND a 10-year probability of a hip fracture greater than or equal to 3% ORa 10-year probability of a major osteoporosis-related fracture greaterthan or equal to 20% based on the [place]-adapted WHO algorithm Please note that all treatment decisions require clinical judgment andconsideration of individual patient factors, including patientpreferences, co-morbidities, previous drug use, risk factors not capturedin the FRAX model (e.g., frailty, falls, vitamin D deficiency, increasedbone turnover, interval significant decline in bone density) and possibleunder- or over-estimation of fracture risk by FRAX. us Jagjit JULIO IMG DXA PROCEDURES Final Result * [facility] SCREENING DIGITAL (03/19/2019 9:24 AM EST) Anatomical Region Laterality Modality Mammography 03/19/2019 9:01 AM EST Narrative 03/19/2019 9:24 AM EST [facility] Diagnostic Imaging Department [address] [place] [address] [id number] Patient: ??HELEN GALARZA ?/Age/Sex: 1945 73 - F Unit#: ??[id number] ? Location/Status: ??SPDIMAM/REG CLI ? Mnemonic/Ordering Site: ??DIGSC/SPMAM Ordering Physician: ??MARIA VICTORIA GALARZA MD [facility] Screening Digital - 03/19/19 - EXAM: [facility] Screening Digital EXAM DATE AND TIME: 03/19/2019 9:01 AM HISTORY: Post biopsy clip placement COMPARISON: Digital mammogram 03/06/19 IMAGING: Digital CC, lateral, and MLO views of the left breast are obtained immediately following ultrasound guided core biopsy of the left breast. TISSUE DENSITY: b: There are scattered areas of fibroglandular density. FINDINGS: A small metallic tissue marker (wing) is seen in the middle 10:00 position of the breast, well positioned with respect to the area of concern noted on the prebiopsy mammogram. Multiple small air locules are seen within the medial breast and there is generalized increased soft tissue attenuation here, consistent with biopsy changes. The remainder of the breast is without significant change. IMPRESSION: Biopsy changes in the left breast, with tissue marker well-positioned. BI-RADS: ??Post Procedure Mammogram for Marker Placement. [id number] Dictating Physician: ??KAYLEIGH RHODES MD Electronically Signed by: ??KAYLEIGH RHODES MD Dic Date/Time: ??03/19/19921 Sign date/Time: ??03/19/19923 Procedure Note Kayleigh Rhodes - 02/01/2022 [facility] Diagnostic Imaging Department [address] [place], [place] [id number] Patient: NAHEDHELEN Chandni LaraB./Age/Sex: 1945 - 73 - F Unit#: [id number] Location/Status: [facility]/REG CLI Mnemonic/Ordering Site: [facility] Ordering Physician: MARIA VICTORIA GALARZA MD [facility] Screening Digital - 03/19/19 - EXAM: [facility] Screening Digital EXAM DATE AND TIME: 03/19/2019 9:01 AM HISTORY: Post biopsy clip placement COMPARISON: Digital mammogram 03/06/19 IMAGING: Digital CC, lateral, and MLO views of the left breast areobtained immediately following ultrasound guided core biopsy of the left breast. TISSUE DENSITY: b: There are scattered areas of fibroglandular density. FINDINGS: A small metallic tissue marker (wing) is seen in the middle 10:00 positionof the breast, well positioned with respect to the area of concern noted onthe prebiopsy mammogram. Multiple small air locules are seen within themedial breast and there is generalized increased soft tissue attenuation here, consistent with biopsy changes. The remainder of the breast is without significant change. IMPRESSION: Biopsy changes in the left breast, with tissue marker well-positioned. BI-RADS: Post Procedure Mammogram for Marker Placement. [id number] Dictating Physician: KAYLEIGH RHODES MD Electronically Signed by: KAYLEIGH RHODES MD Dic Date/Time: 03/19/19921 Sign date/Time: 03/19/19923 Maria Victoria Galarza MD IMG BI PROCEDURES Final Result * Hepatitis C Screening (08/24/2014) Hepatitis C Screening ABSTRACTED Historical Provider HEALTH MAINTENANCE Final Result from Last 3 Months or Most Recently Relevant to Health Maintenance Insurance [place] [id number] Care Teams Steam Plant Operator Relationship Specialty Start Date End Date Maria Victoria Galarza MD [address] [place] [id number] PCP - General 12/31/03
--- OUTSIDE RECORDS SUMMARY | 2024-06-13 08:08 | XMS_ITS | Clinical Summary ---
Author Organization [facility] Address [address] [place] [address] Care Team Providers Care Electronic Systems Security Assessment Name Role Phone Staci Galarza MD Primary Care Provider [phone] Allergies No known active allergies Medications Medication Sig Dispensed Refills Start Date End Date Status levothyroxine (SYNTHROID, LEVOXYL) tablet 150 mcg Take 175 mcg by mouth every morning on an empty stomach. 0 Active atenolol (TENORMIN) tablet 50 mg Take 50 mg by mouth daily. 0 Active sertraline (ZOLOFT) 100 MG tablet Take 100 mg by mouth daily. 0 Active oxybutynin (DITROPAN) 5 MG tablet Take 5 mg by mouth daily. 0 Active Calcium Carbonate-Vitamin D (CALTRATE 600+D PO) Take by mouth daily. 0 Active Multiple Vitamin (MULTI-VITAMIN DAILY PO) Take by mouth daily. 0 Active lisinopril (PRINIVIL,ZESTRIL) tablet 5 mg Take 5 mg by mouth daily. 0 Active warfarin (COUMADIN) 5 MG tablet Take 5 mg by mouth daily. 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 Maternal cousin in her 70s. Family History Medical History Relation Name Comments Colon cancer Maternal Aunt 1 Breast cancer Maternal Aunt 2 Breast cancer Maternal Cousin Stomach cancer Maternal Grandfather Colon cancer Mother Lung cancer Paternal Uncle Relation Name Status Comments Maternal Aunt 1 Maternal Aunt 2 Breast cance r in her 90s Maternal Cousin Breast cance r in her 70s Maternal Grandfather Mother Paternal Uncle Social History Tobacco Use Types Packs/Day Years Used Date Smoking Tobacco: Never Smokeless Tobacco: Never Alcohol Use Standard Drinks/Week Comments Yes 0 (1 standard drink = 0.6 oz pur e alcohol) occasionally Sex and Gender Information Value Date Recorded Sex Assigned at Not on file Gender Identity Not on file Sexual Orientation Not on file Last Filed Vital Signs Vital Sign Reading Time Taken Comments Blood Pressure 124/59 06/24/2019 11:08 AM EDT Pulse 83 06/24/2019 11:08 AM EDT Temperature 36.6 ??C (97.9 ??F) 06/24/2019 11:08 AM E DT Respiratory Rate - - Oxygen Saturation - - Inhaled Oxygen Concentration - - Weight 76.4 kg (168 lb 6.4 oz) 06/24/2019 11:08 AM EDT Height 162.6 cm (5' 4 ) 06/24/2019 11:08 AM EDT Body Mass Index 28.91 06/24/2019 11:08 AM EDT Plan of Treatment Health Maintenance Due Date Last Done Comments Hepatitis C Screening 1945 COVID-19 Vaccine (#1) 06/10/1952 Pneumococcal Vaccine (1 of 2 - PCV) 06/10/1953 Depression Screening 1959 Preventative Health Evaluation 06/10/1965 DTap / Tdap / Td (1 - Tdap) 06/10/1966 Shingrix-Zoster Vaccine (1 of 2) 06/10/1966 Fall Risk Assessment 06/10/2012 Osteoporosis Screening (DEXA Scan) 06/10/2012 RSV Adult > 60+ Yrs or Pregn ant (1 - 1-dose 75+ series) 06/10/2022 Influenza Vaccine (#1) 2023 Hepatitis B Vaccines Aged Out No long er eligible based on patient's age to complete this topic RSV Ped < 20 months Aged Out No longe r eligible based on patient's age to complete this topic Care Teams Electronic Systems Security Assessment Relationship Specialty Start Date End Date Staci Galarza MD PCP - General Internal Medicine 03/26/19
== END 2024-06-13 09:02 | disposition home or self-care (01) ==
PROVIDERS: PCP Internal Medicine; Visit Provider Physician Assistant
DX: M25.562 Pain in left knee (principal)

== ENCOUNTER → 2024-06-13 08:02 | Outpatient (BNVA) | payer OTHER, SELFPAY | PROVIDERS: PCP Internal Medicine; Visit Provider Physician Assistant ==

== ENCOUNTER 2024-09-12 13:09 | Outpatient (AMB) | payer OTHER, SELFPAY ==
--- NOTE | 2024-09-12 13:21 | MHC.OFFWIV ---
Intake Vital Signs 09/12/24 13:22 Height 5 ft 4 in Weight 168 lb BMI 28.8 BP 136/82 Blood Pressure Location Lt brachial Position Sitting Pulse 75 Pulse Source Pulse Oximeter Temp 97.8 F Temp Source Oral Pulse Oximetry (%) 94 Oxygen Delivery Method Room Air Intake Visit Reasons: EP RT Knee pain Intake Note: presents with right medial knee pain for 3 days- denies injury Patient Tobacco Use Status: Never used Tobacco Allergies atorvastatin Allergy (Intermediate, Verified 09/12/24 13:24) bilster Do you need a note to return to daycare/school/sports/work: No HPI HPI Comments History of Present Illness Details History of Present Illness - The patient is a 79-year-old female presenting with right knee pain. - The knee pain began suddenly while walking, without any fall or twist, and intensified after sitting. - The patient has difficulty bearing weight on the knee, especially when walking. - Her pain is located on the right medial aspect of the knee with no radiation of the pain. - She has been having a hard time getting around. - There is a history of an ACL tear in the left knee, and the patient is considering a right hip replacement. - She has an appointment with ortho to discuss treatment and surgical options for her hip. - He denies numbness, tingling, redness, calf pain, ankle pain, or foot pain. Physical Exam General: Cooperative, healthy appearing, comfortable, no acute distress and well developed Respiratory: Normal respiratory effort and able to speak in complete sentences. Clear to auscultation bilaterally Cardiovascular: Regular rate and rhythm. Normal S1 and S2 Skin: No rashes or lesions noted. Musculoskeletal: Knee appears slightly swollen on the right. FROM of the knee. Click noted. Tenderness to palpation noted along the medial aspect of the knee. No TTP of the patella, lateral condyle, lateral meniscus, or posterior fossa. Negative anterior drawer test. Negative Anjelica noted. DTR are 1+ on the LE. Negative Homans noted. FROM of the ankle. Ambulates with a steady gait. Strength is 5/5 on the LE bilaterally. Neuro: Sensation is intact on the LE bilaterally. [facility] Social History Patient Tobacco Use Status: Never used Tobacco Review of Systems Const All systems reviewed & are unremarkable except as noted in HPI and below Physical Exam Vital Signs: Last Vital Signs Temp 97.8 F 09/12/24 13:22 Pulse 75 09/12/24 13:22 BP 136/82 09/12/24 13:22 Pulse Ox 94 09/12/24 13:22 Oxygen Delivery Method Room Air 09/12/24 13:22 BMI result Body Mass Index 28.8 Results Reviewed Results Reviewed: Reviewed the x-ray in the office today Assessment & Plan Assessment & Plan (1) Right knee pain: Code(s): M25.561 - Pain in right knee Qualifiers: Chronicity: acute Qualified Code(s): M25.561 - Pain in right knee Plan Most likely strain vs tendonitis vs bursitis vs ligamentous injury vs arthritis Plan - rest, ice, elevation - wear splint for comfort - tylenol or motrin as needed - will order an xray - can refer her to PT or ortho if pain continues - follow up with her PCP Coding Level of Care Code Est Pt Level 4 (96413) Diagnoses Acute pain of right knee M25.561 Chronicity: acute
[2024-09-12 13:22] VITALS: BP 136/82; PULSE 75; TEMP 36.6; O2SAT 94; BMI 28.8
== END 2024-09-12 14:31 | disposition home or self-care (01) ==
PROVIDERS: PCP Internal Medicine; Visit Provider Physician Assistant Medical
DX: M25.561 Pain in right knee (principal)

== ENCOUNTER 2024-09-12 13:09 | Outpatient (REF) | payer OTHER, SELFPAY ==
--- NOTE | ~2024-09-12 | XR_ITS ---
EXAMINATION: XR KNEE, RIGHT CLINICAL INFORMATION: M25.561 - Pain in right knee COMPARISON: None available. TECHNIQUE: Four views of the right knee. FINDINGS: There is no joint effusion. There is moderate narrowing of the medial joint space. Chronic calcific densities in the posterior joint line are seen centrally and medial to the midline on the frontal view and are possible intra-articular in location. Tricompartmental marginal osteophytes are largest along the medial joint line and patellofemoral joint. XR/XR knee RT 4V IMPRESSION: Moderate osteoarthritis. Possible intra-articular bodies in the posterior joint. Electronically signed by: Oleg Fernandes MD 09/12/2024 02:09 PM EDT
--- OUTSIDE RECORDS SUMMARY | 2024-09-12 13:56 | XMS_ITS | Clinical Summary ---
Author Organization [facility] Address [address] [place] [address] Care Team Providers Care Manager Call Name Role Phone Staci Galarza MD Primary Care Provider [phone] Allergies No known active allergies Medications Medication [...] 0(pTis (DCIS), pN0(sn), cM0, GX, ER: Negative, [place]: Negative, HER2: Not assessed ) - Signed [...] 83 06/24/2019 11:08 AM EDT Temperature 36.6 C (97.9 F) 06/24/2019 11:08 AM EDT Respiratory Rate - - Oxygen Saturation - [...] 1-dose 75+ series) 06/10/2022 Influenza Vaccine (#1) 2024 Hepatitis B Vaccines Aged Out No long er eligible based on patient's age to complete this topic RSV Ped < 20 months Aged Out No longe r eligible based on patient's age to complete this topic Care Teams Manager Call Relationship Specialty Start Date End Date Staci Galarza MD PCP - General Internal Medicine 03/26/19
--- OUTSIDE RECORDS SUMMARY | 2024-09-12 13:56 | XMS_ITS | Clinical Summary ---
Author Organization [facility] [address] [facility] Address [address] [place] [address] Phone Care Team Providers Care Wares Sorter Name Role Phone Maria Victoria Galarza MD Primary Care Provider Allergies Active Allergy Reactions Criticality Noted Date Comments Atorvastatin Rash 05/28/2024 Blisters on legs Medications calcium carbonate/mauricio min D3 (CALTRATE 600 PLUS D ORAL) OTC Active multivitamin (MULTIPLE VITAMINS ORAL) OTC Activ e levothyroxine (SYNTHROID, LEVOTHROID) 175 mcg tablet TAKE 1 TABLET BY MOUTH EVERY DAY 90 tablet 1 5 Active sertraline (ZOLOFT) 100 mg tablet TAKE 1.5 TABLETS BY MOUTH DAILY. PATIENT IS TO TAKE 150 MG DAILY 135 tablet 1 5 Active furosemide (LASIX) 20 mg tablet Take 1 tablet (20 mg total) by mouth 1 (one) time each day. 30 each 11 5 06/06/19 26 Active atenoloL (TENORMIN) 50 mg tablet Take 1.5 tablets (75 mg total) by mouth 1 (one) time each day. 135 each 3 5 Active oxyBUTYnin XL (DITROPAN-XL) 5 mg 24 hr tablet TAKE 1 TABLET BY MOUTH EVERY DAY 90 tablet 1 5 Active Eliquis 5 mg tablet TAKE 1 TABLET BY MOUTH TWICE A DAY 180 tablet 1 5 Active lisinopriL (PRINIVIL,ZEST RIL) 10 mg tablet TAKE 1 TABLET BY MOUTH 1 TIME EACH DAY. 90 tablet 1 5 Active lisinopriL (PRINIVIL,ZEST RIL) 10 mg tablet Take 1 tablet (10 mg total) by mouth 1 (one) time each day. 90 each 5 08/15/19 25 Discontinued Active Problems Problem Noted Date Diagnosed Date CHF (congestive heart failure) ([facility] V24, [facility] V28) 06/05/2024 Assessment & Plan (06/05/2024 5:07 [...] 06/06/2021 Overview (01/23/2024): Sees urology group of [facility] Permanent atrial fibrillation ([facility] V24, [facility] V28) 03/26/2019 Overview (01/23/2024): Last Assessment & [...] from goiter Malignant neoplasm of female breast ([facility] V24, [facility] V28) 06/30/2005 Overview (01/23/2024): s/p masectomy, chemo, radiatiomn [id number], oncology recommended discontinuation of aramidex 06/2014 IMO update Encounters Date Type Department Care Team Description 07/23/2024 1:30 PM EDT Ancillary Procedure [facility] [address] [facility] [address] [place] [id number] Congestive heart failure, unspecified HF chronicity, unspecified heart failure type ([facility] V24, [facility] V28) 07/14/[address] [facility] [address] [facility] [address] [place] [phone] Eddie Minor MD Leg Swelling 06/24/2024 Telephone [facility] [address] [place] [address] Shasha Garsia [place] Medication from Last 3 Months Immunizations Name Administration [...] Surgery Date Site/Laterality Comments COLONOSCOPY 08/27/2002 PROCEDURE: ME COLONOSCOPY FLX DX W/COLLJ SPEC WHEN PFRMD; COMMENT: Negative COLONOSCOPY 04/16/2012 PROCEDURE: ME COLONOSCOPY FLX DX W/COLLJ SPEC WHEN PFRMD; COMMENT: no polyps Medical History Medical History Date Comments Malignant neoplasm of breast (female), unspecified site 06/30/2005 DX:Malignant neoplasm of xavier ast (female), unspecified site; COMMENT: s/p masectomy, chemo, radiatiomn [id number] Essential hypertension, benign 06/30/2005 D X:Essential hypertension, [...] unspecified site; COMMENT: s/p masectomy, chemo, radiatiomn [phone], oncology recommended discontinuation of aramidex 06/2014 Family [...] Reading Time Taken Comments Blood Pressure 140/80 07/23/2024 2:06 PM EDT Pulse 95 06/05/2024 1:06 PM EDT Temperature 36.4 C (97.6 F) 05/19/2024 10:33 AM EDT Respiratory Rate 16 05/19/2024 10:33 AM EDT Oxygen Saturation 96% 06/05/2024 1:06 PM EDT Inhaled Oxygen Concentration - - Weight 75.8 kg (167 lb) 07/23/2024 2:06 PM EDT Height 162.6 cm (5' 4 ) 07/23/2024 2:06 PM EDT Body Mass Index 28.67 07/23/2024 2:06 PM EDT Plan of Treatment Upcoming Encounters Date Type Department Care Team (Late st Contact Info) Description 11/18/2024 11:15 AM EDT Office Visit Adult Medicine [facility] [address] [place] [address] Maria Victoria Galarza MD [address] [place], [place] 05/12/2025 9:30 AM EDT Office Visit General Surgery [facility] [address] [phone] Marybeth Rice MD [address] [address] Health Maintenance Due Date Last Done Comments Zoster Vaccines (1 of 2) 06/10/1966 DTaP,Tdap,and Td Vaccines (4 - Td or Tdap) 09/05/2021 09/06/2011, 09/17/2002, 09/17/2002 Social Influencers of Health Screening 01/19/2022 RSV Immunization Adult Patients (1 - 1-dose 75+ series) 06/10/2022 COVID-19 Vaccine (5 - season) 2023 01/20/2022, 01/20/2022, 12/28/2020, Additional history exists Influenza Vaccine (#1) 2024 , 01/28/2022, 10/30/2019, Additional history exists Falls Risk Assessment 05/19/2025 05/19/2024 Hypertension/CHF/CAD Annual BMP Blood Test 07/17/2025 07/17/2024, 06/17/2024, 11/05/2023, Additional history exists Cholesterol Screening (Lipid Panel) 11/04/2028 11/05/2023, 11/05/2023 Osteoporosis Screening (Bone Density Screening) 08/23/2032 08/23/2022, 01/01/2019 Hepatitis C Screening Completed 08/24/2014 Breast Cancer Screening Discontinued 03/19/2019 Depression Screening Completed 05/19/2024 Pneumococcal Vaccine: 50+ Years Completed 05/19/2024, 05/20/2013 [...] Procedure Name Priority Date/Time Associated Diagnosis Comments TRANSTHORACIC ECHOCARDIOGRAM (TTE) COMPLETE Routine 07/23/2024 2:07 PM EDT Congestive heart failure, unspecified HF chronicity, unspecified heart failure type ([facility] V24, [facility] V28) BASIC METABOLIC PANEL Routine 07/17/2024 12:24 PM EDT Permanent atrial fibrillation ([facility] V24, [facility] V28) CBC WITH AUTO DIFFERENTIAL Routine 06/17/2024 11:43 AM EDT Routine general medical examination at a health care facility Tiredness Need for vaccination with 20-polyvalent pneumococcal conjugate vaccine THYROID STIMULATING HORMONE WITH REFLEX TO FREE T4 AND FREE T3 Routine 06/17/2024 11:43 AM EDT Routine general medical examination at a health care facility Tiredness Need for vaccination with 20-polyvalent pneumococcal conjugate vaccine VITAMIN D 25 HYDROXY Routine 06/17/2024 11:43 AM EDT Routine general medical examination at a health care facility Tiredness Need for vaccination with 20-polyvalent pneumococcal conjugate vaccine VITAMIN B12 Routine 06/17/2024 11:43 AM EDT Routine general medical examination at a health care facility Tiredness Need for vaccination with 20-polyvalent pneumococcal conjugate vaccine COMPREHENSIVE METABOLIC PANEL Routine 06/17/2024 11:43 AM EDT Routine general medical examination at a health care facility Tiredness Need for vaccination with 20-polyvalent pneumococcal conjugate vaccine CBC AND DIFFERENTIAL Routine 06/17/2024 11:43 AM EDT Routine general medical examination at a health care facility Tiredness Need for vaccination with 20-polyvalent pneumococcal conjugate vaccine IRON AND TIBC Routine 06/17/2024 11:43 AM EDT Routine general medical examination at a health care facility Tiredness Need for vaccination with 20-polyvalent pneumococcal conjugate vaccine FERRITIN Routine 06/17/2024 11:43 AM EDT Routine general medical examination at a health care facility Tiredness Need for vaccination with 20-polyvalent pneumococcal conjugate vaccine FOLATE Routine 06/17/2024 11:43 AM EDT Routine general medical examination at a health care facility Tiredness Need for vaccination with 20-polyvalent pneumococcal conjugate vaccine B-TYPE NATRIURETIC PEPTIDE Routine 06/17/2024 11:43 AM EDT Congestive heart failure, unspecified HF chronicity, unspecified heart failure type (CMS/HCC V24, CMS/HCC V28) LIPID PANEL Routine 11/05/2023 DXA BONE DENSITY STUDY 1+ SITS AXIAL SKEL Routine 08/23/2022 11:29 AM EDT Other specified personal risk factors, not elsewhere classified VERITO SCREENING DIGITAL Routine 03/19/2019 9:24 AM EST Encounter for screening mammogram for malignant neoplasm of breast HEPATITIS C SCREENING Routine 08/24/2014 from Last 3 Months or Most Recently Relevant to Health Maintenance Results * (ABNORMAL) TRANSTHORACIC ECHOCARDIOGRAM (TTE) COMPLETE (07/23/2024 2:07 PM EDT) Left Atrium Minor [place] 5.9 cm CV PACS Left Atrium Major [place] 5.5 cm CV PACS LA Area Sys (A2C) 20 cm2 CV PACS LA Area Sys (A4C) 21 cm2 CV PACS LA Volume (BP) 61 mL CV PACS RA Area 20.1 cm2 CV PACS RA 2D Volume 64 mL CV PACS Aortic Sinus Valsalva 2.8 cm CV PACS Ascending Aorta 3.3 cm CV PACS IVSD 1.0(A) 0.6 - 0.9 cm CV PACS LVIDD 4.7 3.8 - 5.2 cm CV PACS LVIDS 3.0 2.2 - 3.5 cm CV PACS LVOT Diameter 1.9 cm CV PACS LVOT Mean Grad 1 mmHg CV PACS LVOT Peak VTI 16.3 cm CV PACS LVOT Mean Elder 0.6 m/s CV PACS LVOT Peak Elder 0.8 m/s CV PACS LVOT Peak Gradient 2 mmHg CV PACS LVPWD 1.0(A) 0.6 - 0.9 cm CV PACS LVOT Area 2.8 cm2 CV PACS LVOT Stroke Volume 46 mL CV PACS PV Acceleration Time 77 ms CV PACS RV Diastolic Basal Dimension 3.7 2.5 - 4.1 cm CV PACS TAPSE 18 mm CV PACS Relative Wall Thickness ratio 0.43 CV PACS FS 36 % CV PACS LV Mass 2D 164 g CV PACS LVOT flow 170 mL/s CV PACS BSA 1.85 m2 CV PACS LA Volume Index (BP) 34 mL/m2 CV PACS LVIDD Index 2.60 cm/m2 CV PACS LVIDS Index 1.66 cm/m2 CV PACS LV Mass Index 2D 91(A) 44 - 88 g/m2 CV PACS LVOT Stroke Index 25 mL/m2 CV PACS RA 2D Volume Index 35(A) 15 - 27 mL/m2 CV PACS Ascending Aorta Index 1.82 cm/m2 CV PACS Anatomical Region Laterality Modality Ultrasound Narrative 07/25/2024 5:55 PM EDT Left ventricle cavity size is normal. There is mild hypertrophy. Systolic function is normal with an ejection fraction of 55-60%. There are no regional LV wall motion abnormalities. Right ventricle cavity is normal. Right ventricular systolic function is normal. Mild biatrial enlargement. IVC is normal in size. No hemodynamically significant valvular disease. Tricuspid regurgitation is inadequate for estimation of right ventricular systolic pressure. No significant change compared to previous study of 09/07/2022. Left Ventricle Left ventricle cavity size is normal. There is mild hypertrophy. Systolic function is normal with an ejection fraction of 55-60%. There are no regional LV wall motion abnormalities. Unable to assess diastolic function. Right Ventricle Right ventricle cavity appears normal. Systolic function is normal. Normal TAPSE (> 17 mm). Left Atrium Left atrium cavity is mildly dilated. Right Atrium Right atrium cavity is mildly dilated. IVC/SVC RA pressures is estimated to be 3 mmHg (IVC diameter <21 mm and decreases >50% during inspiration). Mitral Valve The leaflets are mildly thickened and exhibit normal excursion. There is mild annular calcification. There is trace regurgitation. Tricuspid Valve Tricuspid valve structure is normal. Tricuspid regurgitation is inadequate for estimation of right ventricular systolic pressure. There is no significant tricuspid valve stenosis. Aortic Valve The aortic valve is trileaflet. The leaflets are mildly calcified. There is trace regurgitation. There is no evidence of aortic valve stenosis. Pulmonic Valve The pulmonic valve was not well visualized. No significant pulmonic valve regurgitation. No significant pulmonary valve stenosis noted. Ascending Aorta The aorta appears normal in size. Study Details Overall the study quality was adequate. The underlying ECG rhythm was atrial fibrillation. us Eddie Mnior MD CV ECHO PROCEDURES Final Result * Basic metabolic panel (07/17/2024 12:24 PM EDT) Sodium 139 133 - 145 mmol/L LAB CHEMISTRY METHOD 07/17/2024 4:26 PM [facility] Potassium 3.8 3.5 - 5.5 mmol/L LAB CHEMISTRY METHOD 07/17/2024 4:26 PM [facility] Chloride 100 96 - 110 mmol/L LAB CHEMISTRY METHOD 07/17/2024 4:26 PM [facility] CO2 31 21 - 32 mmol/L LAB CHEMISTRY METHOD 07/17/2024 4:26 PM [facility] Anion Gap 8 3 - 11 LAB CHEMISTRY METHOD 07/17/2024 4:26 PM [facility] Glucose 99 70 - 100 mg/dL LAB CHEMISTRY METHOD 07/17/2024 4:26 PM [facility] BUN 18 5 - 25 mg/dL LAB CHEMISTRY METHOD 07/17/2024 4:26 PM [facility] Creatinine 0.82 0.50 - 1.10 mg/dL LAB CHEMISTRY METHOD 07/17/2024 4:26 PM [facility] eGFR 74 >=60 mL/min/1. 73m2 LAB CHEMISTRY METHOD 07/17/2024 4:26 PM EDT [facility] Comment:Calculation based on the Chronic Kidney Disease Epidemiology Collaboration (CKD-EPI) equation refit without adjustment for race. BUN/Creatinine Ratio 22.0 LAB CHEMISTRY METHOD 07/17/2024 4:26 PM EDT [facility] Calcium 9.5 8.5 - 10.5 mg/dL LAB CHEMISTRY METHOD 07/17/2024 4:26 PM EDT [facility] Blood Venous blood specimen / Unknown Venipuncture / Unknown 07/17/2024 12:24 PM EDT 07/17/2024 12:24 PM EDT Eddie Minor MD LAB BLOOD ORDERABLES Final Resul t Performing Organization Address [facility] Co de Phone Number [facility] [address] [place] [address], * Thyroid stimulating hormone with reflex to free t4 and free t3 (06/17/2024 11:43 AM EDT) TSH 3.19 0.40 - 4.00 mcIU/mL LAB CHEMISTRY METHOD 06/17/2024 5:37 PM EDT [facility] Blood Venous blood specimen / Unknown Venipuncture / Unknown 06/17/2024 11:43 AM EDT 06/17/2024 11:43 AM EDT Ailyn Pierre NP LAB BLOOD ORDERABLES Final R esult Performing Organization Address [facility]/ZIP Co de Phone Number [facility] [address] [place] [address], * (ABNORMAL) CBC auto differential (06/17/2024 11:43 AM EDT) WBC 8.2 4.8 - 10.8 K/mcL LAB HEMETOLOGY METHOD [facility]/17[facility]24 [facility] RBC 4.20 3.80 - 4.80 M/mcL LAB HEMETOLOGY METHOD 06/17/2024 3:28 [facility] Hemoglobin 14.0 11.5 - 16.0 g/dL LAB HEMETOLOGY METHOD 06/17/2024 3:28 PM [facility] Hematocrit 42.7 35.0 - 47.0 % LAB HEMETOLOGY METHOD 06/17/2024 3:28 PM [facility] MCV 101.2(H) 79.0 - 98.0 FL LAB HEMETOLOGY METHOD 06/17/2024 3:28 PM [facility] MCH 33.2(H) 27.0 - 32.0 pcg LAB HEMETOLOGY METHOD 06/17/2024 3:28 PM [facility] MCHC 32.8 32.0 - 37.0 g/dL LAB HEMETOLOGY METHOD 06/17/2024 3:28 PM [facility] RDW 12.9 11.0 - 15.0 % LAB HEMETOLOGY METHOD 06/17/2024 3:28 PM [facility] Platelets 254 130 - 400 K/mcL LAB HEMETOLOGY METHOD 06/17/2024 3:28 PM [facility] MPV 11.0 7.0 - 11.0 FL LAB HEMETOLOGY METHOD 06/17/2024 3:28 PM [facility] NRBC 0.0 <1.0 % LAB HEMETOLOGY METHOD 06/17/2024 3:28 PM [facility] NRBC Absolute 0.00 <0.10 K/mcL LAB HEMETOLOGY METHOD 06/17/2024 3:28 PM [facility] Neutrophils Relative 72.0 % LAB HEMETOLOGY METHOD 06/17/2024 3:28 PM [facility] Lymphocytes Relative 18.7 % LAB HEMETOLOGY METHOD 06/17/2024 3:28 PM EDT [facility] Monocytes Relative 6.7 % LAB HEMETOLOGY METHOD 06/17/2024 3:28 PM [facility] Eosinophils Relative 1.5 % LAB HEMETOLOGY METHOD 06/17/2024 3:28 PM EDT [facility] Basophils Relative 0.5 % LAB HEMETOLOGY METHOD 06/17/2024 3:28 PM [facility] Immature Granulocytes Relative 0.6 % LAB HEMETOLOGY METHOD 06/17/2024 3:28 PM [facility] Neutrophils Absolute 5.90 1.50 - 7.00 K/mcL LAB HEMETOLOGY METHOD 06/17/2024 3:28 PM [facility] Lymphocytes Absolute 1.53 1.00 - 5.00 K/mcL LAB HEMETOLOGY METHOD 06/17/2024 3:28 PM [facility] Monocytes Absolute 0.55 0.20 - 1.00 K/mcL LAB HEMETOLOGY METHOD 06/17/2024 3:28 PM [facility] Eosinophils Absolute 0.12 0.00 - 0.50 K/mcL LAB HEMETOLOGY METHOD 06/17/2024 3:28 PM [facility] Basophils Absolute 0.04 0.00 - 0.20 K/mcL LAB HEMETOLOGY METHOD 06/17/2024 3:28 PM [facility] Immature Granulocytes Absolute 0.05(H) 0.00 - 0.03 K/mcL LAB HEMETOLOGY METHOD 06/17/2024 3:28 PM [facility] Blood Venous blood specimen / Unknown Venipuncture / Unknown 06/17/2024 11:43 AM EDT 06/17/2024 11:43 AM EDT Ailyn Pierre IRON WORKER APPRENTICE LAB BLOOD ORDERABLES Final R esult [facility] [address] [place] [address], [place] [phone] * Iron and TIBC (06/17/2024 11:43 AM EDT) Iron 122 40 - 150 mcg/dL LAB CHEMISTRY METHOD 06/17/2024 4:17 PM EDT [facility] TIBC 275 250 - 450 mcg/dL LAB CHEMISTRY METHOD 06/17/2024 4:17 PM EDT [facility] Iron Saturation 44 15 - 50 % LAB CHEMISTRY METHOD 06/17/2024 4:17 PM EDT [facility] Blood Venous blood specimen / Unknown Venipuncture / Unknown 06/17/2024 11:43 AM EDT 06/17/2024 11:43 AM EDT Ailyn Pierre IRON WORKER APPRENTICE LAB BLOOD ORDERABLES Final R esult Performing Organization Address City/[facility]/ZIP Co de Phone Number [facility] [address] [place] [address], [place] [phone] * Vitamin D 25 hydroxy (06/17/2024 11:43 AM EDT) Vit D, 25-Hydroxy 54.6 30.0 - 80.0 ng/mL LAB CHEMISTRY METHOD 06/17/2024 5:37 PM EDT [facility] Blood Venous blood specimen / Unknown Venipuncture / Unknown 06/17/2024 11:43 AM EDT 06/17/2024 11:43 AM EDT Ailyn Pierre IRON WORKER APPRENTICE LAB BLOOD ORDERABLES Final R esult [facility] [address] [place] [address], [place] [phone] * (ABNORMAL) B-type natriuretic peptide (06/17/2024 11:43 AM EDT) BNP 216(H) <=100 pcg/mL LAB CHEMISTRY METHOD 06/17/2024 4:15 PM EDT [facility] Blood Venous blood specimen / Unknown Venipuncture / Unknown 06/17/2024 11:43 AM EDT 06/17/2024 11:43 AM EDT Eddie Minor MD LAB BLOOD ORDERABLES Final Resul t Performing Organization Address City/[facility]/ZIP Co de Phone Number [facility] [address] [place] [address], * (ABNORMAL) Folate (06/17/2024 11:43 AM EDT) [facility] Folate >20.0(H) 2.8 - 17.0 ng/ml LAB CHEMISTRY METHOD 06/17/2024 4:17 PM EDT [facility] Blood Venous blood specimen / Unknown Venipuncture / Unknown 06/17/2024 11:43 AM EDT 06/17/2024 11:43 AM EDT Ailyn Pierre NP LAB BLOOD ORDERABLES Final R esult Performing Organization Address [facility]/ZIP Co de Phone Number [facility] [address] [place] [address], [place] [phone] * (ABNORMAL) Ferritin (06/17/2024 11:43 AM EDT) Ferritin 286(H) 8 - 252 ng/mL LAB CHEMISTRY METHOD 06/17/2024 4:17 PM EDT [facility] Blood Venous blood specimen / Unknown Venipuncture / Unknown 06/17/2024 11:43 AM EDT 06/17/2024 11:43 AM EDT Ailyn Pierre IRON WORKER APPRENTICE LAB BLOOD ORDERABLES Final R esult [facility] [address] [place] [address], [place] [phone] * Vitamin B12 (06/17/2024 11:43 AM EDT) [facility] Vitamin B-12 562 250 - 900 pcg/mL LAB CHEMISTRY METHOD 06/17/2024 4:17 PM EDT [facility] Blood Venous blood specimen / Unknown Venipuncture / Unknown 06/17/2024 11:43 AM EDT 06/17/2024 11:43 AM EDT Ailyn Pierre IRON WORKER APPRENTICE LAB BLOOD ORDERABLES Final R esult Performing Organization Address City/[facility]/ZIP Co de Phone Number [facility] [address] [place] [address], [place] [phone] * (ABNORMAL) Comprehensive metabolic panel (06/17/2024 11:43 AM EDT) [facility] Sodium 138 133 - 145 mmol/L LAB CHEMISTRY METHOD 06/17/2024 4:17 PM EDT [facility] Potassium 3.5 3.5 - 5.5 mmol/L LAB CHEMISTRY METHOD 06/17/2024 4:17 PM EDT [facility] Chloride 103 96 - 110 mmol/L LAB CHEMISTRY METHOD 06/17/2024 4:17 PM EDT [facility] CO2 28 21 - 32 mmol/L LAB CHEMISTRY METHOD 06/17/2024 4:17 PM EDT [facility] Anion Gap 7 3 - 11 LAB CHEMISTRY METHOD 06/17/2024 4:[facility] Glucose 119(H) 70 - 100 mg/dL LAB CHEMISTRY METHOD 06/17/2024 4:17 PM EDT [facility] BUN 26(H) 5 - 25 mg/dL LAB CHEMISTRY METHOD 06/17/2024 4:17 PM [facility] Creatinine 0.82 0.50 - 1.10 mg/dL LAB CHEMISTRY METHOD 06/17/2024 4:17 PM [facility] eGFR 74 >=60 mL/min/1. 73m2 LAB CHEMISTRY METHOD 06/17/2024 4:17 PM [facility] Comment:Calculation based on the Chronic Kidney Disease Epidemiology Collaboration (CKD-EPI) equation refit without adjustment for race. BUN/Creatinine Ratio 31.7 LAB CHEMISTRY METHOD 06/17/2024 4:17 PM [facility] Calcium 9.7 8.5 - 10.5 mg/dL LAB CHEMISTRY METHOD 06/17/2024 4:17 PM [facility] AST (SGOT) 7(L) 10 - 42 unit/L LAB CHEMISTRY METHOD 06/17/2024 4:17 PM [facility] ALT (SGPT) 22 10 - 60 unit/L LAB CHEMISTRY METHOD 06/17/2024 4:17 PM [facility] Alkaline Phosphatase 88 42 - 121 unit/L LAB CHEMISTRY METHOD 06/17/2024 4:17 PM [facility] Total Protein 7.0 6.0 - 8.0 g/dL LAB CHEMISTRY METHOD 06/17/2024 4:17 PM [facility] Albumin 3.8 3.2 - 5.0 g/dL LAB CHEMISTRY METHOD 06/17/2024 4:17 PM [facility] Total Bilirubin 0.5 0.0 - 1.4 mg/dL LAB CHEMISTRY METHOD 06/17/2024 4:17 PM [facility] Blood Venous blood specimen / Unknown Venipuncture / Unknown 06/17/2024 11:43 AM EDT 06/17/2024 11:43 AM EDT Ailyn Pierre NP LAB BLOOD ORDERABLES Final R esult SHANI GARCIA LA ([facility]) [facility] [address] [place] [address], * (ABNORMAL) Lipid panel (11/05/2023) LDL/HDL Ratio 3 0 - 4 Triglycerides 148 0 - 150 mg/dL Cholesterol 219(A) 0 - 200 mg/dL HDL 79 >=40 mg/dL LDL Cholesterol 111(A) 0 - 100 mg/dL Blood Venous blood specimen / Unknown Historical Provider LAB BLOOD ORDERABLES Veronica l Result * DXA BONE DENSITY STUDY 1+ SITS AXIAL SKEL (08/23/2022 11:29 AM EDT) Anatomical Region Laterality Modality Bone Densitometr y 01/23/2022 8:36 AM EST Narrative 08/23/2022 2:52 PM EDT BONE DENSITY Lumbar Spine T-score is +1.0 [...] classified as having normal bone density. The [facility] recommends using National [...] classified as having normal bone density. The [facility] of [facility] recommendsusing National Osteoporosis [...] or over-estimation of fracture risk by FRAX. Jagjit [facility]ULIO [facility] DXA PROCEDURES Final Result * [facility] SCREENING [facility]IG[facility] (03/19/2019 9:24 AM EST) Anatomical Region Laterality Modality Mammography 03/19/2019 9:01 AM EST Narrative 03/19/2019 9:24 AM EST [facility] Diagnostic Imaging Department [address] [place] [address] Patient: NAHEDHAYDENHELEN Chandni /Age/Sex: 1945 - 73 - F Unit#: [id number] Location/Status: SPDIMAM/REG CLI Mnemonic/Ordering Site: [facility] Ordering Physician: MARIA VICTORIA GALARZA MD Verito Screening Digital - 03/19/19 - EXAM: Verito Screening Digital EXAM DATE AND TIME: 03/19/2019 [...] BI-RADS: Post Procedure Mammogram for Marker Placement. [id number] Dictating Physician: KAYLEIGH RHODES MD Electronically Signed by: KAYLEIGH RHODES MD Dic Date/Time: 03/19/19921 Sign date/Time: 03/19/19923 Procedure Note Kayleigh Rhodes - 02/01/2022 [facility] Diagnostic Imaging Department [address] [place] [address] Patient: NAHEDHELEN./Age/Sex: 1945 - 73 - F Unit#: [id number] [facility] CLI Mnemonic/Ordering Site: [facility] Ordering Physician: MARIA VICTORIA GALARZA MD [facility] Screening Digital - 03/19/19 - EXAM: [facility] Screening Digital EXAM DATE AND TIME: 03/19/2019 [...] BI-RADS: Post Procedure Mammogram for Marker Placement. [id number] Dictating Physician: KAYLEIGH RHODES MD Electronically Signed by: KAYLEIGH RHODES MD Dic Date/Time: 03/19/19921 Sign date/Time: 03/19/19923 Maria Victoria Galarza MD IMG BI PROCEDURES Final Result * Hepatitis C Screening (08/24/2014) Hepatitis C Screening ABSTRACTED Historical Provider HEALTH MAINTENANCE Final Result from Last 3 Months or Most Recently Relevant to Health Maintenance Insurance [facility] Care Teams Wares Sorter Relationship Specialty Start Date End Date Maria Victoria Galarza MD [address] [place] [id number] PCP - General 12/31/03
--- OUTSIDE RECORDS SUMMARY | 2024-09-12 13:56 | XMS_ITS | Patient Health Record ---
[facility] Address [address] [place] [address] Care Team Providers Care Coupon Clerk Name Role Phone Michell DUMONT, [facility] Primary Care Provider Unav ailKaroline Kaiser Unavailable [phone] Allergies No Known Allergies Reason For Referral [...] W/U Status Risk Notes Problem Plantar wart (93410466) Plantar wart (B07.0) Active confirmed Problem Acquired hallux valgus (74413893) Hallux valgus (acquired), right foot (M20.11) Active confirmed Problem Hallux valgus of left foot (7465608086) Hallux valgus of left foot (M20.12) Active confirmed Problem 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) Active confirmed Vital Signs Height 5 ft 4 in in 11/14/2023 Weight 165 lbs 11/14/2023 BMI 28.32 kg/m2 11/14/2023 Encounters Encounter Location Date Provider Diagnosis [address] [address] 09/13/2023 Karoline Rodriguez Disorder of the skin and subcutaneous tissue, unspecified L98.9 ; Accessory bone of foot Q74.2 ; Left foot pain M79.672 ; Hallux valgus of left foot M20.12 and Hallux valgus (acquired), right foot M20.[address] [address] 10/24/2023 Karoline Perica Left foot pain M79.672 and Plantar wart B07.[address] [address] 11/14/2023 Karoline Perica Left foot pain M79.672 and Plantar wart B07.[address] [address] 09/13/2023 Karoline Donahuea [address] [address] 11/14/2023 Karoline Rodriguez Assessments Encounter Date Diagnosis [...] Insured Coverage Start Date Coverage End Date [facility] [address] MICHELLE SANTIAGO [id number] [facility] Helen Galarza Self - patient is the insured Medical (General) History Medical History History ICD Code Back,Hip,and Knee pain Cancer Depression High blood pressure Sciatica thyroid Measles Mumps Chicken pox Surgical History Surgery Date(Month/Year) bilateral mastectomy 2019
== END 2024-09-12 13:10 | disposition home or self-care (01) ==
LOC: HO.HMGCX 13:09
PROVIDERS: PCP Internal Medicine; Visit Provider Physician Assistant Medical
DX: M25.561 Pain in right knee (principal)
CPT/HCPCS: 73564

== ENCOUNTER → 2024-09-12 13:57 | Outpatient (BNV) | payer OTHER, SELFPAY | PROVIDERS: PCP Internal Medicine; Visit Provider Radiology Diagnostic Radiology | DX: M17.11 Unilateral primary osteoarthritis, right knee (principal) | CPT/HCPCS: 73564 ==